=== PATIENT | female | born 1990 | race Caucasian/White ===

== ENCOUNTER 2020-04-22 02:20 | Emergency (ER) | payer SELFPAY ==
[~2020-04-22] VITALS: Ht 162.6 cm; Wt 54.4 kg
[2020-04-22 02:20] VITALS: BP 149/90
[2020-04-22 02:40] VITALS: BP 149/90
[2020-04-22] MEDS ORDERED: ACETAMINOPHEN 325 MG TAB PO ONE (02:50)
--- NOTE | 2020-04-22 04:00 | NUR ---
PATIENT [facility] PATIENT EXAMINED BY DR. HOSKINS. PATIENT MEDICALLY CLEARED AND RELEASED IN CUSTODY IN STABLE CONDITION. ORIGINAL PRE-BOOK FORM GIVEN TO OFFICER KW[facility], #[id number].
== END 2020-04-22 04:00 | disposition home or self-care (01) ==
LOC: MED 02:20
DX: S01.111A Laceration without foreign body of right eyelid and periocular area, initial encounter (principal); M54.2 Cervicalgia; Z02.89 Encounter for other administrative examinations; V46.5XXA Car driver injured in collision with other nonmotor vehicle in traffic accident, initial encounter; Y93.89 Activity, other specified; Y92.89 Other specified places as the place of occurrence of the external cause; Y99.8 Other external cause status
CPT/HCPCS: 70450; 73501; 81025; 90471; 90715; 99284